=== PATIENT | male | born 1950 | race Caucasian/White ===

== ENCOUNTER 2017-01-28 10:29 | Emergency (ER) | payer MEDICARE ==
[~2017-01-28] VITALS: Ht 167.6 cm; Wt 62.1 kg
--- NOTE | ~2017-01-28 | CT71 ---
[facility] A Service [facility] RADIOLOGY TEXT RESULTS PATIENT: PENNY QUIÑONES LOCATION: [facility] : 46 UNIT #: [id number] AGE: [address]: Katya Lowe APRN SEX: M ORDER DR: [id number] [facility] [address] [facility] [address] [place], [place] [address] [id number] MR#: [id number] Acc #: [id number] NAME: PENNY QUIÑONES : 1950 SEX: M STUDY DATE/TIME: 01/28/2017 11:10 UNIT: [facility] ROOM: STUDY DESCRIPTION: CT Head Wo Contrast Attending Physician: Katya Lowe A.P.R.N. Ordering Physician: Ed Doctor [id number] [facility] Primary Care Physician: Zulma Shah A.P.R.N. MEDICAL IMAGING REPORT This report is preliminary unless electronic signature is present EXAM Head CT without contrast HISTORY A ladder fell on the patient's head 2 days ago with head laceration. Blurred vision and headache since with dizziness. TECHNIQUE Axial images were obtained without contrast. This CT examination was performed with one or more of the following radiation dose reduction techniques: automatic exposure control, adjustment of mA and/or kV according to patient size, and iterative reconstruction. FINDINGS The brain images are normal with no evidence of mass lesion, hemorrhage or edema. No midline shift is noted. Extraaxial structures are remarkable for mucosal thickening in the paranasal sinuses, predominantly in the ethmoid air cells. Postoperative changes are seen in the right maxilla. IMPRESSION Chronic inflammatory sinus disease. Postoperative changes in the right maxilla. Negative head CT. Dictated by... Arnaldo Stephenson M.D. THIS IS AN ELECTRONICALLY VERIFIED REPORT Arnaldo Stephenson M.D. at 01/28/2017 3:39 PM HERI/tiffany TD: 01/28/2017 13:09 JOB #: [id number] [facility] A Service of [facility] RADIOLOGY TEXT RESULTS PATIENT: PENNY QUIÑONES LOCATION: [facility] #: [id number] : 46 UNIT #: [id number] AGE: [address]: Katya Lowe APRN SEX: M ORDER DR: MEDICAL IMAGING REPORT Page 1 of 1 COPY
[~2017-01-28 10:29] MED LIST: LORTAB 10/500 T1 TAB PO
== END 2017-01-28 12:10 | disposition home or self-care (01) ==
LOC: CED 10:29 → CFTX 10:51 → CED 10:51 → CFTX 12:10
DX: S06.0X9A Concussion with loss of consciousness of unspecified duration, initial encounter (principal); S00.01XA Abrasion of scalp, initial encounter; F17.200 Nicotine dependence, unspecified, uncomplicated; Z88.5 Allergy status to narcotic agent; W20.8XXA Other cause of strike by thrown, projected or falling object, initial encounter; Y92.009 Unspecified place in unspecified non-institutional (private) residence as the place of occurrence of the external cause
CPT/HCPCS: 70450; 99284